=== PATIENT | female | born 1950 | race Caucasian/White ===

== ENCOUNTER 2017-11-23 11:55 | Outpatient (CLI) | payer MEDICARE, BC ==
--- NOTE | 2017-11-23 15:15 | RAD ---
PA CHEST RADIOGRAPH THREE VIEWS LEFT SIDED RIBS: Date: 11-23-17 History: Left sided rib pain after a fall on 11-22-17. Comparison: 04-09-16 FINDINGS: Cardiac silhouette is magnified by projection but does appear mildly enlarged. The pulmonary vasculat ure is within normal limits. No pleural effusion or pneumothorax is seen. There is no evidence of a l eft sided rib fracture. Degenerative changes are noted in the spine. There has been no interval taylor e from chest radiograph in 2016. IMPRESSION: 1. No acute cardiopulmonary process. 2. No evidence of a left sided rib fracture. 3. Cardiomegaly. POS: [facility]
== END 2017-11-23 11:56 | disposition home or self-care (01) ==
LOC: NAV RAD 11:55
PROVIDERS: ATTEND Family Medicine
DX: R07.81 Pleurodynia (principal); I51.7 Cardiomegaly

== ENCOUNTER 2018-03-25 09:22 | Outpatient (CLI) | payer MEDICARE, BC ==
--- NOTE | 2018-03-25 10:41 | RAD ---
RIGHT KNEE THREE VIEWS: 03/25/2018 HISTORY: Osteoarthritis. FINDINGS: There is evidence of osteopenia. There is tricompartment osteophytosis with prominent osteophytes pr esent. There are calcifications overlying the lateral joint compartment of the knee, suggesting elmira drocalcinosis. There is narrowing of the medial joint compartment. No fracture or dislocation is se en. Prominent vascular calcifications are seen within the popliteal and tibioperoneal vessels. IMPRESSION: 1. Osteoarthritis, greatest involving the medial joint compartment and patellofemoral joint. 2. Chondrocalcinosis. 3. Osteopenia. 4. No acute osseous abnormality. POS: [facility]
--- NOTE | 2018-03-25 10:44 | RAD ---
LEFT KNEE FOUR VIEWS INCLUDING AP VIEWS OF THE BILATERAL KNEES: 03/25/2018 HISTORY: Osteoarthritis. FINDINGS: There is tricompartment osteophytosis involving the left knee with joint space narrowing involving th e medial joint compartment, as well as the patellofemoral joint. There is osteopenia. There does ap pear to be slight varus angulation of each knee secondary to narrowing of the medial joint compartmen ts. There is osteopenia. Vascular calcifications are seen posterior to the knee. On the lateral vi ew, there appears to be increased density/calcification in the subcutaneous soft tissues anterior to the diaphysis of the tibia, which may be related to heterotopic ossification. This is incompletely i phyllis on this exam. IMPRESSION: 1. Osteopenia and osteoarthritis, left knee. 2. Increased density, subcutaneous soft tissues, anterior to the tibial diaphysis, which is incomple tely imaged but likely attributable to heterotopic ossification. POS: [facility]
== END 2018-03-25 09:23 | disposition home or self-care (01) ==
LOC: NAV RAD 09:22
PROVIDERS: ATTEND Family Medicine
DX: M19.90 Unspecified osteoarthritis, unspecified site (principal); M17.12 Unilateral primary osteoarthritis, left knee; M85.862 Other specified disorders of bone density and structure, left lower leg; R93.7 Abnormal findings on diagnostic imaging of other parts of musculoskeletal system

== ENCOUNTER 2018-09-06 22:58 | Emergency (ER) | payer MEDICARE, BC ==
[2018-09-06] MEDS ORDERED: Bacitracin Zinc 1 Packet ONE (23:15)
[2018-09-07] MEDS ORDERED: Cephalexin 250 MG CAP ONE (00:19)
== END 2018-09-07 00:22 | disposition home or self-care (01) ==
LOC: NAV ERS 22:58
DX: R04.0 Epistaxis (principal); I25.10 Atherosclerotic heart disease of native coronary artery without angina pectoris; I48.91 Unspecified atrial fibrillation; E66.9 Obesity, unspecified; I10 Essential (primary) hypertension; M19.90 Unspecified osteoarthritis, unspecified site; Z87.01 Personal history of pneumonia (recurrent); Z79.82 Long term (current) use of aspirin; Z79.891 Long term (current) use of opiate analgesic; Z79.899 Other long term (current) drug therapy
CPT/HCPCS: 30903

== ENCOUNTER 2018-09-28 10:34 | Outpatient (CLI) | payer MEDICARE, BC ==
--- NOTE | 2018-09-28 12:17 | RAD ---
CHEST PA AND LATERAL: HISTORY: Hypoxia. COMPARISON: 11/23/2017 FINDINGS: There is cardiomegaly with bilateral vascular congestion and prominent proximal pulmonary artery segm ents noted bilaterally, with some increased linear and interstitial markings bilaterally, which appea r old and stable. Old granuloma calcification on the right. Very slight costophrenic angle blunting . IMPRESSION: 1. Cardiomegaly with bilateral vascular congestion and possible small pleural effusions. 2. Prominent proximal pulmonary artery segments bilaterally. 3. Stable chronic lung changes. 4. Atherosclerosis of the aorta. 5. No confluent pneumonia. POS: [facility]
== END 2018-09-28 10:35 | disposition home or self-care (01) ==
LOC: NAV RAD 10:34
PROVIDERS: ATTEND Family Medicine
DX: R09.02 Hypoxemia (principal); I51.7 Cardiomegaly; J81.1 Chronic pulmonary edema
CPT/HCPCS: 71046

== ENCOUNTER 2018-10-07 11:34 | Outpatient (CLI) | payer MEDICARE, BC | END 2018-10-07 11:35 | disposition home or self-care (01) | LOC: NAV ULT 11:34 | PROVIDERS: ATTEND Family Medicine | DX: I50.9 Heart failure, unspecified (principal); R09.02 Hypoxemia; I08.3 Combined rheumatic disorders of mitral, aortic and tricuspid valves; I27.20 Pulmonary hypertension, unspecified | CPT/HCPCS: 93306 ==

== ENCOUNTER 2019-09-05 12:43 | Outpatient (CLI) | payer MEDICARE, BC ==
--- NOTE | 2019-09-05 14:06 | ULT ---
Venous duplex sonogram bilateral lower extremity HISTORY: Bilateral leg pain and edema. FINDINGS: Each common femoral vein and greater saphenous junction were evaluated along with each femo ral, deep femoral, popliteal and posterior tibial vein. There is good color and spectral Doppler flow, compression, and augmentation. At the right popliteal fossa is a large lobular fluid collection with occasional septation. It measur es up to 7.0 cm length by 4.0 cm width by 1.3 cm depth. IMPRESSION: No sonographic evidence of DVT within either lower extremity. Large cyst right popliteal fossa.
== END 2019-09-05 12:44 | disposition home or self-care (01) ==
LOC: NAV ULT 12:43
PROVIDERS: ATTEND Family Medicine
DX: I82.409 Acute embolism and thrombosis of unspecified deep veins of unspecified lower extremity (principal); M71.21 Synovial cyst of popliteal space [Baker], right knee
CPT/HCPCS: 93970

== ENCOUNTER 2020-10-11 08:19 | Emergency (ER) | payer MEDICARE, BC ==
[2020-10-11 09:02] LABS: #Lymphocytes 0.8 thou/uL (1.20-3.40); #Monocytes 0.4 thou/uL (0.11-0.59); #Neutrophils 3.4 thou/uL (1.40-6.50); %Basophils 0.7 % (0.0-1.0); %Eosinophils 0.8 % (0.0-10.0); %Lymphocytes 17.6 % (21.0-51.0); %Monocytes 9.2 % (0.0-10.0); %Neutrophils 71.7 % (42.0-75.0); Hemoglobin 12.5 g/dL (12.0-16.0); Mean Corpuscular HGB CONC 31.2 g/dL (32.0-36.0); Mean Corpuscular Hemoglobin 28.8 pg (27.0-31.0); Mean Corpuscular Volume 92.4 fL (78.0-98.0); Mean Platelet Volume 7.5 fL (7.4-10.4); Platelet Count 159 thou/uL (130-400); RBC Distribution Width 14.2 % (11.5-14.5); Red Blood Cell (RBC) Count 4.33 mill/uL (4.20-5.40); White Blood Cell (WBC) Count 4.7 thou/uL (4.8-10.8)
--- NOTE | 2020-10-11 09:16 | RAD ---
CHEST 1 VIEW: INDICATION: Chest pain and arm tingling with dyspnea. COMPARISON: Prior exam dated 02/20/2019. FINDINGS: There is cardiomegaly with pulmonary vascular congestion. No pleural effusion or pneumothorax is noam dent. No acute osseous abnormality is evident. IMPRESSION: Moderate cardiomegaly with pulmonary vascular congestion. Correlate for congestive heart failure. POS: [facility]
[2020-10-11 09:21] LABS: ALT (SGPT) 19 U/L (8-55); AST (SGOT) 20 U/L (5-34); Alkaline Phosphatase 104 U/L (40-110); Anion Gap 18 mmol/L (10-20); BUN (Urea Nitrogen) 70 mg/dL (9.8-20.1); Bilirubin, Total 0.9 mg/dL (0.2-1.2); Calc. Creatinine Clearance 0 mL/min (70-130); Calcium 9.1 mg/dL (7.8-10.44); Carbon Dioxide 17 mmol/L (23-31); Chloride 108 mmol/L (98-107); Globulin 3.4 g/dL (2.4-3.5); Glucose 214 mg/dL (83-110); Potassium 4.9 mmol/L (3.5-5.1); Protein, Total 7.4 g/dL (5.8-8.1); Sodium 138 mmol/L (136-145)
[2020-10-11 09:34] LABS: CKMB 1.5 ng/mL (0-6.6)
== END 2020-10-11 11:25 | disposition short-term general hospital (02) ==
LOC: NAV ERS 08:19
DX: R00.1 Bradycardia, unspecified (principal); E87.2 Acidosis; I12.9 Hypertensive chronic kidney disease with stage 1 through stage 4 chronic kidney disease, or unspecified chronic kidney disease; I50.9 Heart failure, unspecified; N18.9 Chronic kidney disease, unspecified; E11.9 Type 2 diabetes mellitus without complications; I48.91 Unspecified atrial fibrillation; Z86.718 Personal history of other venous thrombosis and embolism; Z79.82 Long term (current) use of aspirin; Z79.899 Other long term (current) drug therapy
CPT/HCPCS: 71045; 80053; 82553; 83880; 84484; 85025; 93005

== ENCOUNTER 2020-10-23 17:27 | Inpatient (IN) | payer MEDICARE, BC ==
[2020-10-23] MEDS ORDERED: Docusate 100 MG CAP PO PRN (18:10)
[2020-10-23] MEDS ORDERED: Polyethylene Glycol 3350 17 GM Packet PO PRN (18:10)
[2020-10-23] MEDS ORDERED: Ondansetron ODT 4 MG TAB SL PRN (18:14)
[2020-10-23] MEDS ORDERED: Acetaminophen 325 MG TAB PO PRN (18:14)
[2020-10-23] MEDS ORDERED: Dextrose 50% Abboject 50 ML SYRINGE SLOW IVP PRN (18:17)
[2020-10-23] MEDS: Atorvastatin Calcium 20 MG TAB PO SCH (21:21)
[2020-10-23] MEDS: Cephalexin 500 MG CAP PO SCH (21:21)
[2020-10-23] MEDS: hydrALAZINE 25 MG TAB PO SCH (21:21)
[2020-10-24 05:36] LABS: #Basophils 0.1 thou/uL (0.0-0.2); #Lymphocytes 1.4 thou/uL (1.20-3.40); #Monocytes 0.8 thou/uL (0.11-0.59); #Neutrophils 8.2 thou/uL (1.40-6.50); %Basophils 0.5 % (0.0-1.0); %Lymphocytes 13.7 % (21.0-51.0); %Monocytes 7.3 % (0.0-10.0); %Neutrophils 78.5 % (42.0-75.0); Hemoglobin 7.8 g/dL (12.0-16.0); Mean Corpuscular HGB CONC 32.8 g/dL (32.0-36.0); Mean Corpuscular Hemoglobin 30.4 pg (27.0-31.0); Mean Corpuscular Volume 92.7 fL (78.0-98.0); Mean Platelet Volume 8.1 fL (7.4-10.4); Platelet Count 160 thou/uL (130-400); RBC Distribution Width 16.3 % (11.5-14.5); Red Blood Cell (RBC) Count 2.56 mill/uL (4.20-5.40); White Blood Cell (WBC) Count 10.5 thou/uL (4.8-10.8)
[2020-10-24 05:43] LABS: Anion Gap 11 mmol/L (10-20); BUN (Urea Nitrogen) 82 mg/dL (9.8-20.1); Calc. Creatinine Clearance 56 mL/min (70-130); Calcium 8.6 mg/dL (7.8-10.44); Carbon Dioxide 26 mmol/L (23-31); Chloride 106 mmol/L (98-107); Glucose 174 mg/dL (83-110); Potassium 5.4 mmol/L (3.5-5.1); Sodium 138 mmol/L (136-145)
[2020-10-24] MEDS ORDERED: FLU VACC QS2020-21(65YR UP)/PF 240 MCG/0.7 ML SYRINGE IM ONE (09:00)
[2020-10-24] MEDS: Cephalexin 500 MG CAP PO SCH ×2 (09:05→21:33)
[2020-10-24] MEDS: Ferrous Gluconate 324 MG TAB PO SCH (09:06)
[2020-10-24] MEDS: Amlodipine 5 MG TAB PO SCH (09:06)
[2020-10-24] MEDS: Glimepiride 2 MG TAB PO SCH (09:07)
[2020-10-24] MEDS: Furosemide 40 MG TAB PO SCH (09:07)
[2020-10-24] MEDS: hydrALAZINE 25 MG TAB PO SCH ×3 (09:07→21:32)
[2020-10-24] MEDS: Cholecalciferol 1,000 UNITS (25 MCG) TAB PO SCH (09:09)
--- NOTE | 2020-10-24 14:49 | HP ---
CHIEF COMPLAINT: Deconditioning. HISTORY OF PRESENT ILLNESS: The patient is a 70-year-old female with a past medical history of atrial fibrillation, hypertension, CHF with preserved EF of 55% to 60%, chronic kidney disease, and type 2 diabetes, who initially was admitted to [facility] in [place] following symptomatic bradycardia. The patient was found to have COVID pneumonia and her heart rate was in the 20s to 30s. She required admission to the ICU for dopamine and then a dobutamine drip as well. Cardiology was consulted and felt that her bradycardia was due to her COVID pneumonia, so she was monitored in the hospital for over 10 days. The patient was able to be weaned off her drips and her heart rate was able to stabilize on its own. Prior to discharge from [place], they did attempt to start her on a low dose of carvedilol, but she had additional bradycardic episodes, and so, that was stopped as well. During the course of the hospitalization, the patient was noted to be anemic and her hemoglobin was starting to drop. She did have an FOBT, which was positive. Dr. Giron with Gastroenterology was consulted and they do recommend proceeding with scope, but due to her COVID status, she needs to have been at least 20 days from her COVID diagnosis before they will schedule this unless she has occult bleeding. It should be noted that she has no occult bleeding. The patient is not on anticoagulation currently due to this anemia. For her COVID pneumonia, she did receive convalescent plasma while she was in the hospital. She was also started on steroids and her blood sugars have been elevated as well. The patient initially required oxygen supplementation via nasal cannula, but she has since been weaned to room air. The patient did have a prolonged hospital stay, she did become weaker, and therefore, she is being admitted here at [facility] for rehabilitation. PAST MEDICAL HISTORY: 1. Atrial fibrillation. 2. CHF with preserved EF of 55% to 60% on an echo in 2019. 3. Chronic kidney disease. 4. Type 2 diabetes. 5. Hypertension. 6. Osteoarthritis. 7. History of a DVT. PAST SURGICAL HISTORY: She had a trach placed in 2011, but it has subsequently been removed. FAMILY HISTORY: Dad had a stroke and diabetes. Mom had CHF and type 2 diabetes. SOCIAL HISTORY: The patient lives at home by herself and denies tobacco, alcohol, or other drug use. ALLERGIES: NO KNOWN DRUG ALLERGIES. MEDICATIONS: 1. Norvasc 10 mg p.o. daily. 2. Lipitor 20 mg p.o. nightly. 3. Keflex 500 mg p.o. b.i.d. for 3 days for UTI. 4. Vitamin D3 of 2000 units p.o. daily. 5. Colace 100 mg p.o. b.i.d. as needed for constipation. 6. Ferrous gluconate 324 mg p.o. daily. 7. Lasix 40 mg p.o. daily. 8. Glimepiride 1 mg p.o. daily. 9. Hydralazine 25 mg p.o. t.i.d. 10. Pantoprazole 40 mg p.o. daily. 11. MiraLAX 17 g p.o. daily p.r.n. constipation. REVIEW OF SYSTEMS: GENERAL: Negative for fevers, chills, or night sweats. EYES: Negative for vision changes and eye pain. HENT: Negative for sore throat or rhinorrhea. CARDIOVASCULAR: Negative for chest pain, palpitations, or lower extremity edema. RESPIRATORY: Negative for cough, shortness of breath, or wheezing. GI: Negative for nausea, vomiting, or diarrhea. : Negative for dysuria or polyuria. It should be noted that the patient was recently diagnosed with the UTI while she was in [place] and is currently on treatment. MUSCULOSKELETAL: Negative for joint pain or swelling. Positive for generalized weakness. NEUROLOGIC: Negative for syncope or seizure. SKIN: Negative for rashes. The patient does have extensive bruising along her arms and over her abdomen, which has been present as a result of the anticoagulation she was receiving initially. PSYCHIATRIC: Negative for anxiety or depression. PHYSICAL EXAMINATION: VITAL SIGNS: Temperature 97.6, pulse 68, respiratory rate 20, O2 saturation 95% on room air, and blood pressure 142/65. GENERAL: The patient is awake, alert, and oriented, in no acute distress. EYES: Pupils are equal, round, and reactive to light and accommodation. Extraocular muscles intact. HENT: Oropharynx and nasopharynx are without erythema or exudate. NECK: Supple without lymphadenopathy, thyromegaly, or bruits. CARDIOVASCULAR: Irregularly irregular rhythm with a 2/6 murmur noted. LUNGS: Clear to auscultation bilaterally without wheezing or rhonchi. ABDOMEN: Soft, obese, and nontender to palpation. EXTREMITIES: There is no clubbing, cyanosis, or edema. SKIN: The patient has diffuse bruising along her the dependent areas of her left and right arms as well as across her entire abdomen. NEUROLOGIC: Cranial nerves II through XII are grossly intact. Deep tendon reflexes are 2/4. PSYCHIATRIC: The patient displays an appropriate mood and affect. LABORATORY DATA: 1. CBC: WBCs 10.5, hemoglobin 7.8, hematocrit 23.7, and platelet count 160. 2. BMP: Sodium 138, potassium 5.4, chloride 106, bicarb 26, BUN 82, creatinine 1.67, glucose 174, and calcium 8.6. ASSESSMENT AND PLAN: 1. Generalized deconditioning: Physical Therapy and Occupational Therapy have been consulted and will work with the patient. She is currently ambulating with a walker and has been able to get up and walk to the bathroom on her own. 2. Atrial fibrillation: The patient's heart rate is controlled. She is not currently bradycardic. We will continue to monitor this closely. The patient is not receiving anticoagulation due to her anemia and positive fecal occult blood test. 3. Anemia with positive fecal occult blood test: The patient is going to need outpatient followup with Dr. Giron to set up scopes. She has to be 20 days out from her COVID diagnosis, which was initially diagnosed on 10/11. We will set up a followup in coming weeks. We are going to continue to trend her hemoglobin and hematocrit. If it drops below 7, she will need a transfusion. 4. Hypertension: We will continue her current medications and monitor. We will adjust her medications as needed. 5. Type 2 diabetes: Continue Accu-Cheks. She is on glimepiride currently. We will adjust this as needed. 6. Chronic kidney disease, stage 4: The patient's creatinine is at its baseline at 1.67. We will continue to monitor. 7. Hyperkalemia: The patient's potassium is 5.4. We will give a dose of Kayexalate. Job ID: [id number]
[2020-10-24] MEDS: HumaLOG 300 UNITS/3 ML VIAL SC PRN (21:31)
[2020-10-24] MEDS: Atorvastatin Calcium 20 MG TAB PO SCH (21:33)
[2020-10-25 05:28] LABS: #Eosinphils 0.1 thou/uL (0.0-0.7); #Lymphocytes 1.5 thou/uL (1.20-3.40); #Monocytes 0.7 thou/uL (0.11-0.59); #Neutrophils 6.5 thou/uL (1.40-6.50); %Basophils 0.4 % (0.0-1.0); %Eosinophils 1.2 % (0.0-10.0); %Lymphocytes 16.8 % (21.0-51.0); %Monocytes 7.7 % (0.0-10.0); %Neutrophils 73.9 % (42.0-75.0); Mean Corpuscular HGB CONC 32.9 g/dL (32.0-36.0); Mean Corpuscular Hemoglobin 30.8 pg (27.0-31.0); Mean Corpuscular Volume 93.5 fL (78.0-98.0); Mean Platelet Volume 8.1 fL (7.4-10.4); Platelet Count 158 thou/uL (130-400); RBC Distribution Width 17.1 % (11.5-14.5); Red Blood Cell (RBC) Count 2.58 mill/uL (4.20-5.40); White Blood Cell (WBC) Count 8.8 thou/uL (4.8-10.8)
[2020-10-25 05:40] LABS: Anion Gap 14 mmol/L (10-20); BUN (Urea Nitrogen) 81 mg/dL (9.8-20.1); Calc. Creatinine Clearance 57 mL/min (70-130); Calcium 8.6 mg/dL (7.8-10.44); Carbon Dioxide 24 mmol/L (23-31); Chloride 107 mmol/L (98-107); Glucose 69 mg/dL (83-110); Potassium 4.7 mmol/L (3.5-5.1); Sodium 140 mmol/L (136-145)
[2020-10-25] MEDS: Amlodipine 5 MG TAB PO SCH (09:55)
[2020-10-25] MEDS: Cholecalciferol 1,000 UNITS (25 MCG) TAB PO SCH (09:55)
[2020-10-25] MEDS: Furosemide 40 MG TAB PO SCH (09:56)
[2020-10-25] MEDS: Glimepiride 2 MG TAB PO SCH (09:57)
[2020-10-25] MEDS: hydrALAZINE 25 MG TAB PO SCH ×3 (09:58→21:34)
[2020-10-25] MEDS: Cephalexin 500 MG CAP PO SCH ×2 (09:58→21:34)
[2020-10-25] MEDS: Ferrous Gluconate 324 MG TAB PO SCH (09:58)
--- NOTE | 2020-10-25 19:43 | PRG ---
DATE OF SERVICE: 10/25/2020 SUBJECTIVE: The patient is a 70-year-old female, undergoing rehabilitation following a hospital stay for symptomatic bradycardia secondary to COVID pneumonia. The patient states that her legs feel like jello after working with therapy today, but she was able to ride on the bike for about 10 minutes and has been ambulating with her walker. The patient notes that her blood pressure has been a little bit elevated. Overall, she is feeling well and denies any problems breathing. OBJECTIVE: VITAL SIGNS: Temperature 96.1, pulse 89, respiration rate 22, O2 saturation 95% on room air, blood pressure 164/69. GENERAL: The patient is awake, alert, oriented, in no acute distress. CARDIOVASCULAR: Irregularly irregular rhythm with 2/6 systolic murmur. LUNGS: Clear to auscultation bilaterally without wheezing or rhonchi. ABDOMEN: Soft, nontender to palpation. EXTREMITIES: No clubbing, cyanosis, or edema. SKIN: The patient continues to have diffuse bruising along her both upper extremities and her abdomen. PSYCHIATRIC: The patient displays appropriate mood and affect. LABORATORY DATA: 1. CBC: WBC is 8.8, hemoglobin 8.0, hematocrit 24.1, platelet count 158. 2. BMP: Sodium 140, potassium 4.7, chloride 107, bicarb 24, BUN 81, creatinine 1.66, glucose 69, calcium 8.6. 3. Accu-Cheks 248 and 181. ASSESSMENT AND PLAN: 1. Generalized deconditioning: The patient is working with PT and OT. We will continue this, so that the patient can regain her strength. 2. COVID pneumonia: The patient continues to improve, saturating well on room air, and has no shortness of breath. 3. Hyperkalemia: Resolved following dose of Kayexalate. We will recheck potassium again tomorrow. 4. Anemia: Hemoglobin is stable at 8.0. We will continue to trend. The patient is going to be 20 days out from her COVID diagnosis before she can have a scope. We will continue to hold all anticoagulation at this time. 5. Atrial fibrillation: The patient's bradycardia has resolved. She is currently rate controlled. 6. Hypertension: We will increase hydralazine for better blood pressure control. 7. Type 2 diabetes: Continue oral medication with sliding scale insulin. Job ID: [id number]
[2020-10-25] MEDS: Atorvastatin Calcium 20 MG TAB PO SCH (21:34)
[2020-10-25] MEDS: HumaLOG 300 UNITS/3 ML VIAL SC PRN (21:47)
[2020-10-26 05:24] LABS: Hemoglobin 7.9 g/dL (12.0-16.0); Red Blood Cell (RBC) Count 2.55 mill/uL (4.20-5.40); White Blood Cell (WBC) Count 6.5 thou/uL (4.8-10.8)
[2020-10-26 05:25] LABS: #Eosinphils 0.1 thou/uL (0.0-0.7); #Monocytes 0.6 thou/uL (0.11-0.59); #Neutrophils 4.9 thou/uL (1.40-6.50); %Basophils 0.4 % (0.0-1.0); %Eosinophils 1.1 % (0.0-10.0); %Lymphocytes 15.3 % (21.0-51.0); %Monocytes 8.6 % (0.0-10.0); %Neutrophils 74.5 % (42.0-75.0); Manual Diff?? NO; Mean Corpuscular HGB CONC 32.8 g/dL (32.0-36.0); Mean Corpuscular Hemoglobin 30.8 pg (27.0-31.0); Mean Corpuscular Volume 93.9 fL (78.0-98.0); Platelet Count 147 thou/uL (130-400); RBC Distribution Width 17.8 % (11.5-14.5)
[2020-10-26 05:30] LABS: Carbon Dioxide 23 mmol/L (23-31)
[2020-10-26 05:33] LABS: Anion Gap 13 mmol/L (10-20); BUN (Urea Nitrogen) 76 mg/dL (9.8-20.1); Calc. Creatinine Clearance 55 mL/min (70-130); Calcium 8.3 mg/dL (7.8-10.44); Chloride 108 mmol/L (98-107); Glucose 69 mg/dL (83-110); Sodium 140 mmol/L (136-145)
[2020-10-26] MEDS: Ferrous Gluconate 324 MG TAB PO SCH (09:55)
[2020-10-26] MEDS: Furosemide 40 MG TAB PO SCH (09:55)
[2020-10-26] MEDS: Glimepiride 2 MG TAB PO SCH (09:56)
[2020-10-26] MEDS: Amlodipine 5 MG TAB PO SCH (09:56)
[2020-10-26] MEDS: Cephalexin 500 MG CAP PO SCH ×2 (09:56→20:43)
[2020-10-26] MEDS: hydrALAZINE 25 MG TAB PO SCH ×3 (09:57→20:43)
[2020-10-26] MEDS: Cholecalciferol 1,000 UNITS (25 MCG) TAB PO SCH (09:58)
[2020-10-26] MEDS: HumaLOG 300 UNITS/3 ML VIAL SC PRN ×2 (16:37→20:38)
[2020-10-26] MEDS: Atorvastatin Calcium 20 MG TAB PO SCH (20:43)
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
[2020-10-27] MEDS: hydrALAZINE 25 MG TAB PO SCH ×3 (09:05→20:36)
[2020-10-27] MEDS: Cholecalciferol 1,000 UNITS (25 MCG) TAB PO SCH (09:05)
[2020-10-27] MEDS: Glimepiride 2 MG TAB PO SCH (09:06)
[2020-10-27] MEDS: Furosemide 40 MG TAB PO SCH (09:07)
[2020-10-27] MEDS: Ferrous Gluconate 324 MG TAB PO SCH (09:07)
[2020-10-27] MEDS: Amlodipine 5 MG TAB PO SCH (09:07)
--- NOTE | 2020-10-27 09:44 | PRG ---
DATE OF SERVICE: 10/27/2020 SUBJECTIVE: This is a pleasant 70-year-old female, who is here for PT and OT services following hospitalization for bradycardia due to COVID pneumonia. The patient has been doing well with no acute events overnight. She continues to be worried about her house OBJECTIVE: VITAL SIGNS: Temperature 98.1, pulse 84 to 104, respirations 20, O2 sats 93% to 94% on room air, blood pressure ranged 146/65 to 147/69. GENERAL: Well-appearing 70-year-old female, lying in bed, in no acute distress. CARDIOVASCULAR: Rhythm is irregularly irregular with a 2/6 murmur. RESPIRATORY: Lungs are clear to auscultation bilaterally. No wheezes or rhonchi. ABDOMEN: Soft, nontender to palpation. Bowel sounds positive in all 4 quadrants. EXTREMITIES: No cyanosis. No edema. ASSESSMENT: 1. Generalized deconditioning. 2. Status post COVID pneumonia. 3. Atrial fibrillation, rate controlled. 4. Anemia, stable. 5. Type-2 diabetes. 6. Hypertension. PLAN: 1. Continue PT and OT services. 2. Diabetic diet. 3. q.a.c. and at bedtime with sliding scale coverage. 4. Continue to monitor the patient's heart rate for RVR. The patient does have a high heart rate during exercise, but is rate controlled at rest. 5. The patient's H and H have been stable. Continue to monitor. 6. DVT prophylaxis. 7. GI prophylaxis. 8. The patient's blood pressure has come down with increased hydralazine. We will continue to monitor. Job ID: [id number]
[2020-10-27] MEDS: HumaLOG 300 UNITS/3 ML VIAL SC PRN ×2 (12:11→16:33)
--- NOTE | 2020-10-27 12:11 | PRG ---
DATE OF SERVICE: 10/27/2020 SUBJECTIVE: The patient is a 70-year-old female, undergoing rehabilitation following hospitalization for bradycardia and COVID pneumonia. The patient states that she has slept much better last night. She feels like her lower extremities are becoming stronger. She has no concerns at this point in time. Physical Therapy has noted that the patient's blood pressure does increase with therapy as well as her heart rate. OBJECTIVE: VITAL SIGNS: Temperature 98.1, pulse 84, respiration rate 20, O2 saturation 94% on room air, and blood pressure 147/69. GENERAL: The patient is awake, alert, and oriented, in no acute distress. CARDIOVASCULAR: Irregularly irregular rhythm with a 2/6 systolic murmur. LUNGS: Clear to auscultation bilaterally without wheezing or rhonchi. ABDOMEN: Soft, nontender to palpation. SKIN: The patient's bruising is starting to resolve on her upper extremities and across her abdomen. EXTREMITIES: There is no clubbing or cyanosis. The patient does have trace lower extremity edema. PSYCHIATRIC: The patient displays appropriate mood and affect. LABORATORY DATA: Accu-Cheks 81, 175, 238, 72. ASSESSMENT AND PLAN: 1. Generalized deconditioning: Continue PT and OT. The patient is benefiting from therapy. 2. COVID pneumonia: Continues to improve. The patient is continuing to use incentive spirometry several times a day. 3. Hypertension: The patient's blood pressure is coming down with the adjustment in hydralazine. I have planned to watch it over the weekend and to give the patient time to adjust and if it remains elevated, we will continue to titrate up on her hydralazine. 4. Atrial fibrillation: The patient's resting heart rate is stable. It does go up with exercise as we would expect. We will continue to monitor this. 5. Anemia: We will repeat labs in 2 days to trend her hemoglobin. She will need followup with GI as an outpatient, but she has to be 20 days out from her COVID diagnosis. 6. Chronic kidney disease: The patient's creatinine has been stable. We will check it again in 2 days. 7. Type 2 diabetes: The patient's blood sugars are stable. They are improving since the steroids are coming out of her system. We will continue to monitor. Recent A1c was well controlled. Job ID: [id number]
[2020-10-27] MEDS: Atorvastatin Calcium 20 MG TAB PO SCH (20:36)
[2020-10-28 06:43] VITALS: BMI 48.2
[2020-10-28] MEDS: Amlodipine 5 MG TAB PO SCH (09:06)
[2020-10-28] MEDS: hydrALAZINE 25 MG TAB PO SCH ×3 (09:07→20:40)
[2020-10-28] MEDS: Furosemide 40 MG TAB PO SCH (09:07)
[2020-10-28] MEDS: Cholecalciferol 1,000 UNITS (25 MCG) TAB PO SCH (09:07)
[2020-10-28] MEDS: Ferrous Gluconate 324 MG TAB PO SCH (09:07)
[2020-10-28] MEDS: Glimepiride 2 MG TAB PO SCH (09:08)
[2020-10-28] MEDS: Atorvastatin Calcium 20 MG TAB PO SCH (20:40)
[2020-10-29 05:34] LABS: Hemoglobin 7.6 g/dL (12.0-16.0); Mean Corpuscular HGB CONC 31.8 g/dL (32.0-36.0); Mean Corpuscular Hemoglobin 30.7 pg (27.0-31.0); Mean Corpuscular Volume 96.5 fL (78.0-98.0); Mean Platelet Volume 7.4 fL (7.4-10.4); Platelet Count 135 thou/uL (130-400); RBC Distribution Width 19.7 % (11.5-14.5); Red Blood Cell (RBC) Count 2.49 mill/uL (4.20-5.40); White Blood Cell (WBC) Count 3.9 thou/uL (4.8-10.8)
[2020-10-29 05:35] LABS: #Eosinphils 0.1 thou/uL (0.0-0.7); #Lymphocytes 0.8 thou/uL (1.20-3.40); #Monocytes 0.4 thou/uL (0.11-0.59); #Neutrophils 2.6 thou/uL (1.40-6.50); %Basophils 0.7 % (0.0-1.0); %Eosinophils 1.3 % (0.0-10.0); %Lymphocytes 19.4 % (21.0-51.0); %Monocytes 10.5 % (0.0-10.0); Manual Diff?? NO; RBC Morphology Normal
[2020-10-29 05:40] LABS: Anion Gap 13 mmol/L (10-20); BUN (Urea Nitrogen) 58 mg/dL (9.8-20.1); Calc. Creatinine Clearance 63 mL/min (70-130); Calcium 8.2 mg/dL (7.8-10.44); Carbon Dioxide 24 mmol/L (23-31); Chloride 104 mmol/L (98-107); Glucose 78 mg/dL (83-110); Potassium 3.9 mmol/L (3.5-5.1); Sodium 137 mmol/L (136-145)
[2020-10-29] MEDS: Ferrous Gluconate 324 MG TAB PO SCH (09:27)
[2020-10-29] MEDS: Glimepiride 2 MG TAB PO SCH ×2 (09:27→09:29)
[2020-10-29] MEDS: Amlodipine 5 MG TAB PO SCH (09:27)
[2020-10-29] MEDS: hydrALAZINE 25 MG TAB PO SCH ×2 (09:28→15:52)
[2020-10-29] MEDS: Cholecalciferol 1,000 UNITS (25 MCG) TAB PO SCH (09:28)
[2020-10-29] MEDS: Furosemide 40 MG TAB PO SCH (09:28)
[2020-10-29] MEDS: HumaLOG 300 UNITS/3 ML VIAL SC PRN ×2 (13:33→16:58)
[2020-10-29] MEDS ORDERED: hydrALAZINE 25 MG TAB PO SCH (19:30)
--- NOTE | 2020-10-29 20:05 | PRG ---
DATE OF SERVICE: 10/29/2020 SUBJECTIVE: The patient is a 70-year-old female undergoing rehabilitation at [facility]. The patient states that her blood pressures been increasing when she is working with therapy. The patient also noted a little bit of shortness of breath when she was exerting herself as well. We have been monitoring her hemoglobin as she has anemia. Currently she is sitting in a chair and is in no distress. OBJECTIVE: VITAL SIGNS: Temperature 97.8, pulse 73, respiratory rate 19, O2 saturation 98% on room air, blood pressure is ranging from 137 systolic to 199 systolic with activity over 69 to 80 diastolic. GENERAL: The patient is awake, alert, oriented, in no acute distress. CARDIOVASCULAR: Irregularly irregular rhythm with a 2/6 systolic murmur. LUNGS: Clear to auscultation bilaterally without wheezing or rhonchi. ABDOMEN: Soft, nontender, nondistended. EXTREMITIES: No clubbing or cyanosis, but trace edema is present and stable. PSYCHIATRIC: The patient displays appropriate mood and affect. SKIN: The patient has extensive bruising. It is starting to the lighten. LABORATORY DATA: 1. CBC: WBCs 3.9, hemoglobin 7.6, hematocrit 24.0, platelet count 135. 2. BMP: Sodium 137, potassium 3.9, chloride 104, bicarb 24, BUN 58, creatinine 1.52, glucose 78, calcium 8.2. 3. Accu-Cheks 118, 146, 198, 156, 172. ASSESSMENT AND PLAN: 1. Generalized deconditioning: The patient is benefitting from PT and OT. She will continue therapy. 2. Anemia: The patient's hemoglobin has dropped from 7.9 to 7.6. I am monitoring her symptoms closely because she has started to get a little bit short of breath with activity. We will repeat a CBC tomorrow and transfuse if needed. The patient will need an outpatient GI appointment, however, she had to be 20 days post her COVID diagnosis, so we will be able to schedule that soon. 3. Atrial fibrillation: The patient is rate controlled. She is not having issues of bradycardia. 4. Hypertension: I am going to increase the patient's dose of hydralazine as she is continuing to have elevated blood pressures. 5. Type 2 diabetes: The patient's blood sugars are starting to come down as the steroids are getting out of her system. We will continue to cover with sliding scale insulin as needed. 6. COVID pneumonia: The patient continues to improve. 7. Urinary tract infection: The patient has completed her course of antibiotics. Job ID: [id number]
[2020-10-29] MEDS: Atorvastatin Calcium 20 MG TAB PO SCH (20:18)
[2020-10-30 05:21] LABS: White Blood Cell (WBC) Count 2.9 thou/uL (4.8-10.8)
[2020-10-30 05:22] LABS: #Lymphocytes 0.6 thou/uL (1.20-3.40); #Monocytes 0.3 thou/uL (0.11-0.59); #Neutrophils 1.9 thou/uL (1.40-6.50); %Basophils 0.7 % (0.0-1.0); %Eosinophils 1.7 % (0.0-10.0); %Lymphocytes 20.7 % (21.0-51.0); %Monocytes 11.2 % (0.0-10.0); %Neutrophils 65.7 % (42.0-75.0); Hemoglobin 7.4 g/dL (12.0-16.0); Manual Diff?? NO; Mean Corpuscular HGB CONC 31.4 g/dL (32.0-36.0); Mean Corpuscular Hemoglobin 30.7 pg (27.0-31.0); Mean Corpuscular Volume 97.6 fL (78.0-98.0); Mean Platelet Volume 6.9 fL (7.4-10.4); Platelet Count 136 thou/uL (130-400); RBC Distribution Width 19.5 % (11.5-14.5); Red Blood Cell (RBC) Count 2.42 mill/uL (4.20-5.40)
[2020-10-30 05:23] LABS: Hypochromia SLIGHT = 6-15 cells (100X) (0-5/hpf)
[2020-10-30] MEDS: Cholecalciferol 1,000 UNITS (25 MCG) TAB PO SCH (08:59)
[2020-10-30] MEDS: Glimepiride 2 MG TAB PO SCH (09:00)
[2020-10-30] MEDS: Ferrous Gluconate 324 MG TAB PO SCH (09:00)
[2020-10-30] MEDS: Amlodipine 5 MG TAB PO SCH (09:01)
[2020-10-30] MEDS: Furosemide 40 MG TAB PO SCH (09:01)
[2020-10-30] MEDS: hydrALAZINE 25 MG TAB PO SCH ×3 (09:03→21:02)
--- NOTE | 2020-10-30 13:59 | PRG ---
DATE OF SERVICE: 10/30/2020 SUBJECTIVE: The patient is a 70-year-old female, undergoing rehabilitation following a hospital stay for COVID pneumonia and bradycardia. The patient states that she slept well overnight and has no concerns this morning. OBJECTIVE: VITAL SIGNS: Temperature 97.9, pulse 99, respiration rate 20, O2 saturation 95% on room air, and blood pressure 143/82. GENERAL: The patient is awake, alert, oriented, in no acute distress. CARDIOVASCULAR: Irregularly irregular rhythm with a 2/6 systolic murmur. LUNGS: Clear to auscultation bilaterally without wheezing or rhonchi. ABDOMEN: Soft, nontender to palpation. EXTREMITIES: There is no clubbing or cyanosis. The patient has trace edema in bilateral lower extremities. SKIN: Extensive bruising starting to resolve. LABORATORY DATA: 1. CBC: WBC is 2.9, hemoglobin 7.4, hematocrit 23.6, and platelet count 136. 2. Accu-Cheks 172, 138, 79, 141. ASSESSMENT AND PLAN: 1. Generalized deconditioning: Continue PT and OT. The patient is slowly starting to get her strength back. 2. Anemia: The patient's hemoglobin has dropped since the from 8.0 down to 7.4. We will continue to trend and transfuse if it drops less than 7. The patient will be able to schedule a followup with GI soon. 3. Atrial fibrillation: The patient is rate controlled. She is no longer bradycardic. The patient is not on anticoagulation secondary to the anemia and previously positive FOBT. 4. COVID pneumonia: The patient's symptoms have completely resolved. 5. Type 2 diabetes: The patient's blood sugars are also improving as the steroids are getting out of her system. Continue Accu-Cheks with sliding scale insulin. 6. Hypertension: Overall blood pressures when she was working with therapy today are better than they had been in previous stay since increasing her hydralazine. We will continue to monitor her blood pressures and adjust her medications as needed. 7. Chronic kidney disease: The patient's creatinines have been stable. We will recheck it again in a few days. Job ID: [id number]
[2020-10-30] MEDS: HumaLOG 300 UNITS/3 ML VIAL SC PRN (17:09)
[2020-10-30] MEDS: Atorvastatin Calcium 20 MG TAB PO SCH (21:03)
[2020-10-31] MEDS: Cholecalciferol 1,000 UNITS (25 MCG) TAB PO SCH (09:20)
[2020-10-31] MEDS: Glimepiride 2 MG TAB PO SCH (09:21)
[2020-10-31] MEDS: hydrALAZINE 25 MG TAB PO SCH ×3 (09:21→20:48)
[2020-10-31] MEDS: Furosemide 40 MG TAB PO SCH (09:21)
[2020-10-31] MEDS: Ferrous Gluconate 324 MG TAB PO SCH (09:21)
[2020-10-31] MEDS: Amlodipine 5 MG TAB PO SCH (09:22)
--- NOTE | 2020-10-31 10:36 | PRG ---
DATE OF SERVICE: 10/31/2020 SUBJECTIVE: The patient is a 70-year-old female, undergoing rehabilitation. This morning, the patient states that she is feeling sick to her stomach. She was able to eat some breakfast. She asked to sit still for a little bit and see if the feeling passes. OBJECTIVE: VITAL SIGNS: Temperature 98.1, pulse 73, respiration rate 18, O2 saturation 93% on room air, and blood pressure 140/65. GENERAL: The patient is awake, alert, and oriented, in no acute distress. CARDIOVASCULAR: Irregularly irregular rhythm with a 2/6 systolic murmur. LUNGS: Clear to auscultation bilaterally without wheezing or rhonchi. ABDOMEN: Soft, nontender, nondistended with bowel sounds present. EXTREMITIES: There is no clubbing or cyanosis. The patient has trace lower extremity edema at its baseline. PSYCHIATRIC: The patient displays appropriate mood and affect. LABORATORY DATA: Accu-Cheks; 141, 162, 113, and 70. ASSESSMENT AND PLAN: 1. Generalized deconditioning: The patient is doing quite well. Plans to discharge on Thursday with either home health or with outpatient physical therapy. I will discuss this with the patient tomorrow to figure out, which one she prefers. 2. Atrial fibrillation: The patient is rate controlled. She is not on anticoagulation due to anemia. 3. Anemia: I have ordered a CBC for later today to check her hemoglobin. If it is dropping below 7, she will need a transfusion. I have also asked her nurse to try to help arrange followup with Dr. Giron, so we can get an outpatient colonoscopy and EGD set up. 4. Type 2 diabetes: Blood sugars are improved. 5. Hypertension: Blood pressures are improving since adjusting hydralazine 2 days ago. We will continue to monitor. 6. Chronic kidney disease: Repeating a BMP. Job ID: [id number] [facility] [place] [facility]
[2020-10-31 11:35] LABS: #Lymphocytes 0.5 thou/uL (1.20-3.40); #Monocytes 0.3 thou/uL (0.11-0.59); #Neutrophils 2.6 thou/uL (1.40-6.50); %Eosinophils 0.9 % (0.0-10.0); %Lymphocytes 13.6 % (21.0-51.0); %Neutrophils 76.5 % (42.0-75.0); Hemoglobin 8.1 g/dL (12.0-16.0); Mean Corpuscular HGB CONC 31.6 g/dL (32.0-36.0); Mean Corpuscular Hemoglobin 30.8 pg (27.0-31.0); Mean Corpuscular Volume 97.4 fL (78.0-98.0); Mean Platelet Volume 6.5 fL (7.4-10.4); Platelet Count 146 thou/uL (130-400); RBC Distribution Width 19.6 % (11.5-14.5); Red Blood Cell (RBC) Count 2.63 mill/uL (4.20-5.40); White Blood Cell (WBC) Count 3.3 thou/uL (4.8-10.8)
[2020-10-31 11:36] LABS: Anisocytosis SLIGHT = 6-15 cells (100X) (0-5/hpf); Hypochromia SLIGHT = 6-15 cells (100X) (0-5/hpf); MDiff Complete? YES; Platelet Morphology Comment Appears Adequate
[2020-10-31] MEDS: HumaLOG 300 UNITS/3 ML VIAL SC PRN (12:26)
[2020-10-31] MEDS: Atorvastatin Calcium 20 MG TAB PO SCH (20:48)
[2020-11-01 05:21] LABS: Hemoglobin 7.6 g/dL (12.0-16.0); Mean Corpuscular HGB CONC 32.7 g/dL (32.0-36.0); Mean Corpuscular Hemoglobin 31.7 pg (27.0-31.0); Mean Corpuscular Volume 97.1 fL (78.0-98.0); Platelet Count 132 thou/uL (130-400); Red Blood Cell (RBC) Count 2.38 mill/uL (4.20-5.40); White Blood Cell (WBC) Count 2.6 thou/uL (4.8-10.8)
[2020-11-01 05:22] LABS: #Lymphocytes 0.6 thou/uL (1.20-3.40); #Monocytes 0.3 thou/uL (0.11-0.59); #Neutrophils 1.7 thou/uL (1.40-6.50); %Basophils 0.7 % (0.0-1.0); %Eosinophils 1.9 % (0.0-10.0); %Lymphocytes 21.3 % (21.0-51.0); %Monocytes 13.1 % (0.0-10.0); Hypochromia SLIGHT = 6-15 cells (100X) (0-5/hpf); Manual Diff?? NO; Mean Platelet Volume 7.5 fL (7.4-10.4)
[2020-11-01 05:29] LABS: Anion Gap 13 mmol/L (10-20); BUN (Urea Nitrogen) 56 mg/dL (9.8-20.1); Calc. Creatinine Clearance 60 mL/min (70-130); Calcium 8.6 mg/dL (7.8-10.44); Carbon Dioxide 24 mmol/L (23-31); Chloride 105 mmol/L (98-107); Glucose 73 mg/dL (83-110); Potassium 3.7 mmol/L (3.5-5.1); Sodium 138 mmol/L (136-145)
[2020-11-01] MEDS: Amlodipine 5 MG TAB PO SCH (09:11)
[2020-11-01] MEDS: Ferrous Gluconate 324 MG TAB PO SCH (09:11)
[2020-11-01] MEDS: Furosemide 40 MG TAB PO SCH (09:11)
[2020-11-01] MEDS: hydrALAZINE 25 MG TAB PO SCH ×3 (09:11→21:03)
[2020-11-01] MEDS: Glimepiride 2 MG TAB PO SCH (09:11)
[2020-11-01] MEDS: Cholecalciferol 1,000 UNITS (25 MCG) TAB PO SCH (09:12)
[2020-11-01] MEDS: HumaLOG 300 UNITS/3 ML VIAL SC PRN (12:01)
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
[2020-11-01] MEDS: Atorvastatin Calcium 20 MG TAB PO SCH (21:03)
[2020-11-02 05:53] LABS: #Eosinphils 0.1 thou/uL (0.0-0.7); #Lymphocytes 0.9 thou/uL (1.20-3.40); #Monocytes 0.3 thou/uL (0.11-0.59); #Neutrophils 1.5 thou/uL (1.40-6.50); %Basophils 0.6 % (0.0-1.0); %Eosinophils 2.4 % (0.0-10.0); %Lymphocytes 31.9 % (21.0-51.0); %Monocytes 11.8 % (0.0-10.0); %Neutrophils 53.2 % (42.0-75.0); Anisocytosis SLIGHT = 6-15 cells (100X) (0-5/hpf); Hemoglobin 8.1 g/dL (12.0-16.0); Hypochromia MODERATE=16-30 cells (100X) (0-5/hpf); MDiff Complete? YES; Mean Corpuscular HGB CONC 31.3 g/dL (32.0-36.0); Mean Corpuscular Hemoglobin 30.7 pg (27.0-31.0); Mean Corpuscular Volume 98.1 fL (78.0-98.0); Mean Platelet Volume 6.8 fL (7.4-10.4); Platelet Count 153 thou/uL (130-400); Platelet Morphology Comment Appears Adequate; Polychromasia SLIGHT = 2-3 cells (100X) (0-2/hpf); Red Blood Cell (RBC) Count 2.64 mill/uL (4.20-5.40); Tear Drops SLIGHT = 2-5 cells (100X) (0-1/hpf); White Blood Cell (WBC) Count 2.9 thou/uL (4.8-10.8)
[2020-11-02 08:13] VITALS: TEMP 96.2
--- NOTE | 2020-11-02 08:43 | DIS ---
DATE OF ADMISSION: 10/23/2020 DATE OF DISCHARGE: 11/02/2020 DISCHARGE DIAGNOSES: 1. Generalized deconditioning. 2. Atrial fibrillation. 3. Anemia. 4. Type 2 diabetes. 5. COVID pneumonia/resolved. 6. Chronic kidney disease. 7. Hypertension. HOSPITAL COURSE: The patient is a 70-year-old female who was admitted to [place] for rehabilitation following a hospital stay at [facility] for COVID pneumonia and symptomatic bradycardia. The patient has been working with Physical and Occupational Therapy during her stay and strength has improved. She is able to ambulate with her walker and is stable to return home. The patient has a known anemia with a positive FOBT in the previous hospital stay, but followup colonoscopy had to be delayed due to her COVID status. Hemoglobin has hovered between about 7.4 and 8.1. The patient has not required a transfusion at this time. In regard to her hypertension, the patient's hydralazine was adjusted over the course of the hospital stay as she was hypertensive. The patient has been weaned off all oxygen and is maintaining sats without difficulty. The patient does have atrial fibrillation, but she has been rate controlled and there has not been any episodes of bradycardia. DISCHARGE MEDICATIONS: 1. Tylenol 650 mg p.o. q.4 hours p.r.n. 2. Amlodipine 10 mg p.o. daily. 3. Atorvastatin 20 mg p.o. at bedtime. 4. Vitamin D3 at 2000 units p.o. daily. 5. Ferrous gluconate 324 mg p.o. daily. 6. Furosemide 40 mg p.o. daily. 7. Glimepiride 1 mg p.o. daily. 8. Hydralazine 75 mg p.o. t.i.d. 9. Protonix 40 mg p.o. daily. 10. MiraLAX 17 g p.o. daily p.r.n. DISPOSITION: 1. The patient will be discharged home in stable condition. 2. The patient will begin outpatient physical therapy at [facility]. 3. The patient will follow up with me in 1 week and we will call her to arrange this followup. 4. The patient will also need followup with Dr. Kiran and with [facility] for colonoscopy and possible EGD. Job ID: [id number]
[2020-11-02] MEDS: hydrALAZINE 25 MG TAB PO SCH ×2 (09:19→15:30)
[2020-11-02] MEDS: Cholecalciferol 1,000 UNITS (25 MCG) TAB PO SCH (09:19)
[2020-11-02] MEDS: Glimepiride 2 MG TAB PO SCH (09:20)
[2020-11-02] MEDS: Amlodipine 5 MG TAB PO SCH (09:21)
[2020-11-02] MEDS: Ferrous Gluconate 324 MG TAB PO SCH (09:22)
[2020-11-02] MEDS: Furosemide 40 MG TAB PO SCH (09:24)
[2020-11-02 16:19] VITALS: BP 128/63
== END 2020-11-02 16:30 | disposition home or self-care (01) | DRG 947 ==
LOC: NAV ACUTE 17:27
PROVIDERS: ADMIT Family Medicine; ATTEND Family Medicine
DX: R53.81 Other malaise (principal); J12.82 Pneumonia due to coronavirus disease 2019; U07.1 COVID-19; I13.0 Hypertensive heart and chronic kidney disease with heart failure and stage 1 through stage 4 chronic kidney disease, or unspecified chronic kidney disease; I50.32 Chronic diastolic (congestive) heart failure; N18.4 Chronic kidney disease, stage 4 (severe); N39.0 Urinary tract infection, site not specified; I48.91 Unspecified atrial fibrillation; D64.9 Anemia, unspecified; E87.5 Hyperkalemia; E11.65 Type 2 diabetes mellitus with hyperglycemia; E11.22 Type 2 diabetes mellitus with diabetic chronic kidney disease; M19.90 Unspecified osteoarthritis, unspecified site; Z86.718 Personal history of other venous thrombosis and embolism; Z93.0 Tracheostomy status; Z83.3 Family history of diabetes mellitus; Z82.3 Family history of stroke; Z79.899 Other long term (current) drug therapy
CPT/HCPCS: 36416; 80048; 85025; J1815; Q0162

== ENCOUNTER 2020-12-05 10:44 | Outpatient (CLI) | payer MEDICARE, BC | END 2020-12-05 10:45 | disposition home or self-care (01) | LOC: NAV RAD 10:44 | PROVIDERS: ATTEND Internal Medicine Cardiovascular Disease | DX: R06.02 Shortness of breath (principal) | CPT/HCPCS: 71046 ==

== ENCOUNTER 2020-12-07 09:14 | Emergency (ER) | payer MEDICARE, BC ==
[2020-12-07] MEDS ORDERED: Furosemide 40 MG/4 ML VIAL ONE (09:45)
[2020-12-07 09:47] LABS: #Eosinphils 0.1 thou/uL (0.0-0.7); #Lymphocytes 0.9 thou/uL (1.20-3.40); #Monocytes 0.6 thou/uL (0.11-0.59); #Neutrophils 4.7 thou/uL (1.40-6.50); %Basophils 0.5 % (0.0-1.0); %Eosinophils 0.9 % (0.0-10.0); %Lymphocytes 13.9 % (21.0-51.0); %Monocytes 9.4 % (0.0-10.0); %Neutrophils 75.3 % (42.0-75.0); Hemoglobin 10.8 g/dL (12.0-16.0); Mean Corpuscular HGB CONC 29.9 g/dL (32.0-36.0); Mean Corpuscular Hemoglobin 28.6 pg (27.0-31.0); Mean Corpuscular Volume 95.6 fL (78.0-98.0); Mean Platelet Volume 7.1 fL (7.4-10.4); Platelet Count 258 thou/uL (130-400); RBC Distribution Width 16.1 % (11.5-14.5); Red Blood Cell (RBC) Count 3.79 mill/uL (4.20-5.40); White Blood Cell (WBC) Count 6.3 thou/uL (4.8-10.8)
[2020-12-07 09:51] LABS: INR-International Normal Ratio 1.1; Prothrombin Time 13.9 sec (12.0-14.7)
[2020-12-07 09:57] LABS: ALT (SGPT) 21 U/L (8-55); AST (SGOT) 21 U/L (5-34); Albumin 4.3 g/dL (3.4-4.8); Alkaline Phosphatase 110 U/L (40-110); Anion Gap 20 mmol/L (10-20); BUN (Urea Nitrogen) 55 mg/dL (9.8-20.1); Bilirubin, Total 1.3 mg/dL (0.2-1.2); Calc. Creatinine Clearance 0 mL/min (70-130); Calcium 9.7 mg/dL (7.8-10.44); Carbon Dioxide 22 mmol/L (23-31); Chloride 101 mmol/L (98-107); Globulin 3.6 g/dL (2.4-3.5); Glucose 249 mg/dL (83-110); Potassium 3.6 mmol/L (3.5-5.1); Protein, Total 7.9 g/dL (5.8-8.1); Sodium 139 mmol/L (136-145)
[2020-12-07 10:03] LABS: D-Dimer Test 1.39 *mcg/mL (0.27-0.43)
== END 2020-12-07 12:30 | disposition short-term general hospital (02) ==
LOC: NAV ERS 09:14
DX: I11.0 Hypertensive heart disease with heart failure (principal); I50.9 Heart failure, unspecified; R79.1 Abnormal coagulation profile; I48.91 Unspecified atrial fibrillation; E11.9 Type 2 diabetes mellitus without complications; M19.90 Unspecified osteoarthritis, unspecified site; Z79.82 Long term (current) use of aspirin; Z79.51 Long term (current) use of inhaled steroids; Z79.899 Other long term (current) drug therapy
CPT/HCPCS: 71045; 80053; 83605; 83880; 84484; 85025; 85379; 85610; 85730; 93005; 94760; 96374; J1940

== ENCOUNTER 2021-08-10 09:38 | Emergency (ER) | payer MEDICARE, BC ==
[2021-08-10] MEDS ORDERED: Furosemide 40 MG/4 ML VIAL ONE (10:05)
[2021-08-10] MEDS ORDERED: Aspirin Chewable 81 MG TAB ONE (10:05)
[2021-08-10 10:21] LABS: #Lymphocytes 0.8 thou/uL (1.20-3.40); #Monocytes 0.9 thou/uL (0.11-0.59); #Neutrophils 12.8 thou/uL (1.40-6.50); %Basophils 0.3 % (0.0-1.0); %Lymphocytes 5.7 % (21.0-51.0); %Monocytes 6.1 % (0.0-10.0); Hemoglobin 9.5 g/dL (12.0-16.0); Mean Corpuscular HGB CONC 31.8 g/dL (32.0-36.0); Mean Corpuscular Hemoglobin 28.1 pg (27.0-31.0); Mean Corpuscular Volume 88.3 fL (78.0-98.0); Mean Platelet Volume 7.1 fL (7.4-10.4); Platelet Count 219 thou/uL (130-400); RBC Distribution Width 16.6 % (11.5-14.5); Red Blood Cell (RBC) Count 3.37 mill/uL (4.20-5.40); White Blood Cell (WBC) Count 14.6 thou/uL (4.8-10.8)
[2021-08-10 10:46] LABS: ALT (SGPT) 26 U/L (8-55); AST (SGOT) 33 U/L (5-34); Albumin 3.5 g/dL (3.4-4.8); Alkaline Phosphatase 95 U/L (40-110); Anion Gap 19 mmol/L (10-20); BUN (Urea Nitrogen) 59 mg/dL (9.8-20.1); Bilirubin, Total 1.5 mg/dL (0.2-1.2); Calc. Creatinine Clearance 0 mL/min (70-130); Calcium 9.4 mg/dL (7.8-10.44); Carbon Dioxide 19 mmol/L (23-31); Chloride 97 mmol/L (98-107); Globulin 3.8 g/dL (2.4-3.5); Glucose 100 mg/dL (83-110); Potassium 3.3 mmol/L (3.5-5.1); Protein, Total 7.3 g/dL (5.8-8.1); Sodium 132 mmol/L (136-145)
[2021-08-10 11:06] LABS: CKMB 2.6 ng/mL (0-6.6)
[2021-08-10 11:24] LABS: SARS-CoV-2 NAA Rapid Test Not Detected (NotDetected)
== END 2021-08-10 12:51 | disposition short-term general hospital (02) ==
LOC: NAV ERS 09:38
DX: I11.0 Hypertensive heart disease with heart failure (principal); I50.9 Heart failure, unspecified; Z20.822 Contact with and (suspected) exposure to COVID-19; I25.10 Atherosclerotic heart disease of native coronary artery without angina pectoris; I48.91 Unspecified atrial fibrillation; Z79.899 Other long term (current) drug therapy
CPT/HCPCS: 71045; 80053; 82553; 83605; 83880; 84484; 85025; 93005; 96374; J1940; U0002

== ENCOUNTER 2024-10-28 11:34 | Outpatient (CLI) | payer MEDICARE, BC | END 2024-10-28 11:35 | disposition home or self-care (01) | LOC: NAV RAD 11:34 | PROVIDERS: ATTEND Nurse Practitioner Family | DX: M79.89 Other specified soft tissue disorders (principal) ==